=== PATIENT | male | born 1960 | race Caucasian/White ===

== ENCOUNTER 2017-01-11 18:10 | Emergency (ER) | payer SELFPAY ==
--- NOTE | 2017-01-11 18:56 | EDM.PDOC ---
ED HISTORY OF PRESENT ILLNESS - General Chief Complaint: Respiratory Problem Stated Complaint: FEVER,COUGH Time Seen by Provider: 01/11/17 18:56 - History of Present Illness INITIAL COMMENTS - FREE TEXT/NARRATIVE: patient reports he has been sick x 4 days, worsening despite treatment with various over the counter medications. He has had fevers/chills, productive cough , significantly decreased energy level, sinus pain/pressure with hoarseness. He has tried mucinex, nyquil, robitussin, and halls cough drops without much improvement in symptoms. he does have history of HTN, but not currently treating. 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 Symptom Onset Date: 01/08/17 Severity: mild - Related Data Allergies/ADRs: Allergies Allergy/AdvReac Type Severity Reaction Status Date / Time No Known Allergies Allergy Verified 01/11/17 18:20 Home Meds: Home Meds Azithromycin [Zithromax] 250 mg PO DAILY #6 tablet 01/11/17 [Rx] Blood Pressure Med. 01/11/17 [History] Promethazine HCl/Codeine [Prometh-Codein 6.25-10 mg/5 ml] 5 ml PO Q6HR PRN #140 ml 01/11/17 [Rx] Past Medical History Cardiovascular History: Reports: Hypertension Psychiatric History: Reports: Anxiety Social & Family History - Tobacco Use Smoking Status *Q: Current Every Day Smoker Years of Tobacco use: 40 Packs/Tins Daily: 1 ED ROS GENERAL - Review of Systems Review Of Systems: See Below Constitutional: Reports: fever, chills, weakness, fatigue HEENT: Reports: Sinus problem, Throat pain Respiratory: Reports: Cough (productive cough). Denies: Wheezing Cardiovascular: Reports: Dyspnea on exertion (is becoming more short of breath with activity and increased coughing) Skin: Reports: no symptoms Neurological: Reports: Headache ED EXAM, GENERAL - Physical Exam Exam: See Below Exam Limited By: No limitations General Appearance: alert, WD/WN, no apparent distress Eye Exam: bilateral eye: normal inspection Ears: normal external exam, normal canal Ear Exam: bilateral ear: TM dull Throat/Mouth: Normal inspection, Normal oropharynx Head: normocephalic Neck: normal inspection, lymphadenopathy (L), lymphadenopathy (R) Respiratory/Chest: no respiratory distress, rhonchi, wheezing (expiratory wheezing ). No: rales Cardiovascular: regular rate, rhythm, no murmur Psychiatric: normal affect, normal mood Skin Exam: Warm, Dry Lymphatic: no adenopathy Course - Vital Signs Text/Narrative:: 1941 Did review CXR, do not appreciate any acute findings. No pleural effusion noted , no mediastinal adenopathy, or consolidations. Will await radiology report to confirm findings. Plan to treat patient as an outpatient with plans to followup with family practice provider for continuation of treatment for his blood pressure. Last Recorded V/S: Last Vital Signs Temp 98.5 F 01/11/17 18:22 Pulse 80 01/11/17 18:22 Resp 18 01/11/17 18:22 BP 153/83 H 01/11/17 18:22 Pulse Ox 97 01/11/17 18:22 - Orders/Labs/Meds Orders: Active Orders 24 hr Category Date Time Status Chest 2V [CR] Stat Exams 01/11/17 18:56 Ordered Departure - Departure Time of Disposition: 19:46 Disposition: Home, Self-Care 01 Condition: good Clinical Impression: Acute bronchitis Prescriptions: Promethazine HCl/Codeine [Prometh-Codein 6.25-10 mg/5 ml] 5 ml PO Q6HR PRN #140 ml PRN Reason: Cough Azithromycin [Zithromax] 250 mg PO DAILY #6 tablet Instructions: Acute Bronchitis Referrals: PCP,Not In Area [Primary Care Provider] - Michelle Ceja PA-C [Emergency Provider] - Forms: ED Department Discharge Additional Instructions: Your xray does not appear to show any acute findings. Radiology report is pending, will notify you if change in treatment is necessary. Will treat you with an oral antibiotic, take zithromax as directed for 5 days. Will prescribe you a prescription cough syrup, use as directed. This medication will cause drowsiness, so do not take if you have to work or drive, or operate equipment within 10 hours of use. Continue with supportive treatments including mucinex D and/or Delsym, as directed. followup with our family practice clinic providers in 1 week if not improving, or return to ED if needed. Encourage smoking cessation. - My Orders Last 24 Hours: My Active Orders 01/11/17 18:56 Chest 2V [CR] Stat - Assessment/Plan Last 24 Hours: My Active Orders 01/11/17 18:56 Chest 2V [CR] Stat
[2017-01-11 20:13] VITALS: BP 124/78
--- NOTE | 2017-01-12 07:08 | CR ---
Chest: Two views of the chest were obtained. Comparison: No previous chest x-ray. Heart size and mediastinum are normal. Minimal discoid atelectasis is noted within the left base. Lungs otherwise are clear. Old clavicle deformity on the left side from previous fracture which appears healed. Mild degenerative change noted within the spine. Impression: 1. Incidental findings. Nothing acute is appreciated on two-view chest x-ray. Diagnostic code #2
== END 2017-01-11 20:11 | disposition home or self-care (01) ==
LOC: JD.ED 18:10
DX: J20.9 Acute bronchitis, unspecified (principal); I10 Essential (primary) hypertension; F41.9 Anxiety disorder, unspecified; F17.210 Nicotine dependence, cigarettes, uncomplicated; Z79.2 Long term (current) use of antibiotics
CPT/HCPCS: 71020; 71020-26; 99283; 99284